=== PATIENT | male | born 1955 | race Hispanic/Latino ===

== ENCOUNTER 2017-01-28 10:37 | Emergency (ER) | payer BC, OTHER ==
[2017-01-28 10:38] VITALS: BMI 45.4
[2017-01-28 10:47] VITALS: RESP 18
[2017-01-28 11:25] VITALS: TEMP 98; O2SAT 98
--- NOTE | 2017-01-28 12:06 | RAD ---
HISTORY: anemia COMPARISON: 11/30/2016 FINDINGS: LUNGS: No active pulmonary disease. PLEURA: No significant pleural effusion identified, no pneumothorax apparent. CARDIOVASCULAR: Normal. OSSEOUS STRUCTURES: No significant abnormalities. VISUALIZED UPPER ABDOMEN: Normal. OTHER FINDINGS: None. IMPRESSION: No active disease.
[2017-01-28 12:11] LABS: ADD MANUAL DIFF? NO
[2017-01-28 12:25] LABS: BASO # 0.02 K/mm3 (0.0-2.0); BASO % 0.6 % (0.0-3.0); EOS # 0.1 (0.0-0.7); EOS % 2.6 % (1.5-5.0); GRAN # 1.82 (1.4-6.5); GRAN % 51.6 % (50.0-68.0); HEMATOCRIT 31.9 % (42.0-52.0); LYMPH # 1.2 (1.2-3.4); LYMPH % 34.7 % (22.0-35.0); MEAN CELL VOLUME 80.4 fL (80.0-105.0); MEAN CORPUSCULAR HEMOGLOBIN 25.7 pg (25.0-35.0); MEAN PLATELET VOLUME 10.4 fl (7.0-11.0); MONO # 0.4 (0.1-0.6); MONO % 10.5 % (1.0-6.0); PLATELET COUNT 129 10^3/uL (120.0-450.0); RED CELL DISTRIBUTION WIDTH 20.7 % (11.5-14.5); WHITE BLOOD COUNT 3.5 10^3/ul (4.5-11.0)
[2017-01-28 12:31] LABS: INR 1.21 (0.93-1.08); PARTIAL THROMBOPLASTIN TIME 29.3 Seconds (23.7-30.8)
[2017-01-28 12:36] LABS: URINE BILIRUBIN SMALL (NEGATIVE); URINE BLOOD LARGE (NEGATIVE); URINE GLUCOSE (UA) 100 mg/dL (NEGATIVE); URINE KETONE NEGATIVE (NEGATIVE); URINE LEUKOCYTE ESTERASE NEGATIVE Leu/uL (NEGATIVE); URINE PROTEIN 30 mg/dL (<30 mg/dL)
[2017-01-28 12:40] LABS: ALB/GLOB RATIO 0.6 (1.1-1.8); ALKALINE PHOSPHATASE 166 U/L (38-133); ALT/SGPT 70 U/L (7-56); AST/SGOT 101 U/L (15-59); BILIRUBIN,TOTAL 1.4 mg/dL (0.2-1.3); BLOOD UREA NITROGEN 16 mg/dL (7-21); CALCIUM 9.2 mg/dL (8.4-10.5); CARBON DIOXIDE 29 mmol/L (21-33); CHLORIDE 100 mmol/L (98-107); GFR AFRICAN-AMERICAN > 60; GLUCOSE,RANDOM 110 mg/dL (70-110); MAGNESIUM 1.8 mg/dL (1.7-2.2); POTASSIUM 3.6 mmol/L (3.6-5.0); SODIUM 139 mmol/L (132-148); TOTAL PROTEIN 9.3 g/dL (5.8-8.3)
[2017-01-28 12:43] LABS: URINE APPEARANCE CLEAR (CLEAR); URINE COLOR YELLOW (YELLOW)
[2017-01-28 12:55] LABS: URINE AMORPHOUS SEDIMENT FEW; URINE BACTERIA MANY (NEG); URINE EPITHELIAL CELLS 0 - 2 /hpf (0-5); URINE RBC 20 - 25 /hpf (0-2); URINE WBC 0 - 2 /hpf (0-6)
[2017-01-28 13:42] LABS: ADD MANUAL DIFF? NO
[2017-01-28 13:54] LABS: BASO # 0.01 K/mm3 (0.0-2.0); BASO % 0.3 % (0.0-3.0); EOS # 0.1 (0.0-0.7); EOS % 2.6 % (1.5-5.0); GRAN # 1.48 (1.4-6.5); HEMATOCRIT 31.2 % (42.0-52.0); LYMPH # 1.1 (1.2-3.4); LYMPH % 35.8 % (22.0-35.0); MEAN CELL VOLUME 80.2 fL (80.0-105.0); MEAN CORPUSCULAR HGB CONC 32.4 g/dl (31.0-37.0); MONO # 0.4 (0.1-0.6); MONO % 12.3 % (1.0-6.0); PLATELET COUNT 102 10^3/uL (120.0-450.0); RED CELL DISTRIBUTION WIDTH 20.1 % (11.5-14.5)
--- NOTE | 2017-01-28 14:21 | ED PDOC ---
Arrival/HPI - General Chief Complaint: Abnormal Labs Time Seen by Provider: 01/28/17 11:33 Historian: Patient - History of Present Illness Narrative History of Present Illness (Text): 01/28/17 14:16 Jax Juarez is a 61 year old male, whose past medical history includes atrial fibrillation, alcohol abuse, GI bleed, and anemia, was advised by PMD Dr. Lima to present to emergency department for worsening anemia. Blood work done at PMD's office 2 weeks ago showed that patient had low hemoglobin level of 8 and was advised to present to emergency department today. Patient is currently complains of weakness, but denies any fever, chills, headache, dizziness, GI bleeding, urinary symptoms or any other complaints at this time. PMD: Dr. Lima. Time/Duration: > week (2 weeks ) Symptom Onset: Gradual Symptom Course: Unchanged Severity Level: Mild Activities at Onset: Rest Context: Home Past Medical History - Provider Review Nursing Documentation Reviewed: Yes - Infectious Disease Hx of Infectious Diseases: None - Tetanus Immunization Tetanus Immunization: Unknown - Cardiac Hx Cardiac Disorders: Yes Hx Atrial Fibrillation: Yes Hx Congestive Heart Failure: Yes Hx Pacemaker: No Hx Peripheral Edema: Yes - Pulmonary Hx Respiratory Disorders: Yes (SMOKED CIGARETTES 1 1/2 PPD QUIT) - Neurological Hx Paralysis: No - HEENT Hx HEENT Disorder: Yes (hx of nosebleeds) - Hematological/Oncological Hx Blood Disorders: Yes Hx Anemia: Yes (blood transfusion) Hx Cancer: Yes (abdominal polyp) - Integumentary Hx Dermatological Disorder: Yes Other/Comment: edema to lower extremeties with redness - Musculoskeletal/Rheumatological Hx Falls: Yes - Gastrointestinal Hx Gastrointestinal Disorders: Yes (cirrhosis) - Psychiatric Hx Psychophysiologic Disorder: Yes Hx Depression: Yes Hx Substance Use: No - Surgical History Hx Orthopedic Surgery: Yes (knee (L)) Other/Comment: hernia. vArIcose vein surgery. carpAl tunnel surgery - Anesthesia Hx Anesthesia: Yes Hx Anesthesia Reactions: No Hx Malignant Hyperthermia: No - Suicidal Assessment Feels Threatened In Home Enviroment: No Family/Social History - Physician Review Nursing Documentation Reviewed: Yes Family/Social History: No Known Family HX Smoking Status: Former Smoker Hx Alcohol Use: Yes Amount per day: 4 Hx Substance Use: No Hx Substance Use Treatment: No Allergies/Home Meds Allergies/Adverse Reactions: Allergies No Known Allergies Allergy (Verified 01/28/17 10:47) Home Medications: Home Meds Medication Instructions Recorded Confirmed Nadolol 20 mg PO DAILY 03/09/14 01/28/17 Esomeprazole Magnesium [Nexium] 40 mg PO DAILY 09/21/16 01/28/17 Furosemide [Lasix] 40 mg PO BID 11/30/16 01/28/17 [id number] CD [Cardizem CD] 180 mg PO DAILY 11/30/16 01/28/17 Potassium CL 10 MEQ/50 ML 20 meq PO DAILY 01/28/17 01/28/17 Review of Systems - Physician Review All systems were reviewed & negative as marked: Yes - Review of Systems Constitutional: Fatigue (generalized weakness ). absent: Fevers Respiratory: Normal. absent: SOB, Cough Cardiovascular: Normal. absent: Chest Pain, Palpitations Neurological: Normal. absent: Headache, Dizziness Psychiatric: Normal Physical Exam Vital Signs Reviewed: Yes Vital Signs Temp Pulse Resp BP Pulse Ox 01/28/17 14:28 69 18 129/74 98 01/28/17 12:09 64 18 124/79 98 01/28/17 11:19 98.0 F 66 18 126/82 98 01/28/17 10:42 98 F 66 18 126/82 97 Temperature: Afebrile Blood Pressure: Normal Pulse: Regular Respiratory Rate: Normal Appearance: Positive for: Well-Appearing, Non-Toxic, Comfortable Pain Distress: None Mental Status: Positive for: Alert and Oriented X 3 - Systems Exam Head: Present: Atraumatic, Normocephalic Pupils: Present: PERRL Conjunctiva: Present: Normal Respiratory/Chest: Present: Clear to Auscultation, Good Air Exchange. No: Respiratory Distress, Accessory Muscle Use Cardiovascular: Present: Regular Rate and Rhythm, Normal S1, S2. No: Murmurs Abdomen: Present: Normal Bowel Sounds. No: Tenderness, Distention, Peritoneal Signs Neurological: Present: GCS=15, CN II-XII Intact, Speech Normal Skin: Present: Warm, Dry, Normal Color. No: Rashes Psychiatric: Present: Alert, Oriented x 3, Normal Insight, Normal Concentration Medical Decision Making ED Course and Treatment: 01/28/17 14:24 Impression: A 61 year old male who presents to the emergency department for low hemoglobin count of 8. Differential Diagnosis include but are not limited to: weakness secondary to anemia. Plan: -- EKG -- Labs -- Chest X-ray -- Urinalysis -- Reassess and disposition Progress Notes: 01/28/17 14:26 Initial hemoglobin level at Emergency department was 10.2 and repeat was 10.1 . Case discussed with Dr. Lima who recommends that blood transfusion not necessary at this time. Advised patient to f/u with him outpatient. - Lab Interpretations Lab Results: 01/28/17 13:40 01/28/17 12:27 Lab Results 01/28/17 13:40: WBC 3.0 L, RBC 3.89, Hgb 10.1 L, Hct 31.2 L, MCV 80.2, MCH 26.0 , MCHC 32.4, RDW 20.1 H, Plt Count 102 L, MPV 10.0, Gran % 49.0 L, Lymph % (Auto ) 35.8 H, Nicholas % (Auto) 12.3 H, Eos % (Auto) 2.6, Baso % (Auto) 0.3, Gran # 1.48 , Lymph # 1.1 L, Nicholas # 0.4, Eos # 0.1, Baso # 0.01 01/28/17 12:27: Sodium 139, Potassium 3.6, Chloride 100, Carbon Dioxide 29, Anion Gap 14, BUN 16, Creatinine 0.9, Est GFR ( Amer) > 60, Est GFR (Non- Af Amer) > 60, Random Glucose 110, Calcium 9.2, Magnesium 1.8, Total Bilirubin 1.4 H, AST 101 H, ALT 70 H, Alkaline Phosphatase 166 H, Total Protein 9.3 H, Albumin 3.6, Globulin 5.7, Albumin/Globulin Ratio 0.6 L, Blood Type O POSITIVE, Antibody Screen Negative, BBK History Checked Patient has bt 01/28/17 12:20: Urine Color Yellow, Urine Appearance Clear, Urine pH 6.0, Ur Specific [place] 1.020, Urine Protein 30 H, Urine Glucose (UA) 100 H, Urine Ketones Negative, Urine Blood Large H, Urine Nitrate Negative, Urine Bilirubin Small H, Urine Urobilinogen 4.0 H, Ur Leukocyte Esterase Negative, Urine RBC 20 - 25, Urine WBC 0 - 2, Ur Epithelial Cells 0 - 2, Amorphous Sediment Few, Urine Bacteria Many, Hyaline Casts 0 - 2 01/28/17 11:17: WBC 3.5 L, RBC 3.97, Hgb 10.2 L, Hct 31.9 L, MCV 80.4, MCH 25.7 , MCHC 32.0, RDW 20.7 H, Plt Count 129, MPV 10.4, Gran % 51.6, Lymph % (Auto) 34.7, Nicholas % (Auto) 10.5 H, Eos % (Auto) 2.6, Baso % (Auto) 0.6, Gran # 1.82, Lymph # 1.2, Nicholas # 0.4, Eos # 0.1, Baso # 0.02, PT 13.1 H, INR 1.21 H, APTT 29.3 I have reviewed the lab results: Yes - RAD Interpretation Radiology Orders: 01/28/17 11:46 CHEST PORTABLE [RAD] Stat Barrel Assembly Inspector: Radiologist - EKG Interpretation Interpreted by ED Physician: Yes Type: 12 lead EKG - Scribe Statement The provider has reviewed the documentation as recorded by the Enrique Mccallum Provider Attestation: All medical record entries made by the Enrique were at my direction and personally dictated by me. I have reviewed the chart and agree that the record accurately reflects my personal performance of the history, physical exam, medical decision making, and the department course for this patient. I have also personally directed, reviewed, and agree with the discharge instructions and disposition. Disposition/Present on Arrival - Present on Arrival Any Indicators Present on Arrival: No History of DVT/PE: No History of Uncontrolled Diabetes: No Urinary Catheter: No History of Decub. Ulcer: No History Surgical Site Infection Following: None - Disposition Have Diagnosis and Disposition been Completed?: Yes Diagnosis: Weakness Disposition: HOME/ ROUTINE Disposition Time: 14:25 Patient Plan: Admission Condition: IMPROVED Discharge Instructions (ExitCare): Weakness (ED) Additional Instructions: Mr Sauceda, thank you for letting us take care of you today. Your provider was Dr. Mccabe. You were treated for Weakness. The emergency medical care you received today was directed at your acute symptoms. If you were prescribed any medication, please fill it and take as directed. It may take several days for your symptoms to resolve. Return to the Emergency Department if your symptoms worsen, do not improve, or if you have any other problems. Please contact your doctor or call one of the physicians/clinics you have been referred to that are listed on the Patient Visit Information form that is included in your discharge packet. Bring any paperwork you were given at discharge with you along with any medications you are taking to your follow up visit. Our treatment cannot replace ongoing medical care by a primary care provider (PCP) outside of the emergency department. Thank you for allowing the [facility] team to be part of your care today. If you had an X-Ray or CT scan: A Radiologist will review the ED reading if any change in treatment is needed we will contact you. If you had a blood, urine, or wound culture: It will take several days for the results, if any change in treatment is needed we will contact you. If you had an STI test: It will take 48 hours for the results. Please call after 1 week if you have not heard back. Referrals: Azeem Lima MD [Primary Care Provider] - Follow up with primary Forms: WORK NOTE
[2017-01-28 14:29] VITALS: BP 129/74; PULSE 69
--- NOTE | 2017-01-29 18:08 | CARD ---
APPROVED REPORT EKG Measurement Heart [id number] <Conclusion> Sinus bradycardia Nonspecific ST abnormality Prolonged QT Abnormal ECG
== END 2017-01-28 14:30 | disposition home or self-care (01) ==
LOC: ED 10:37
DX: R53.1 Weakness (principal); Z87.891 Personal history of nicotine dependence; I48.91 Unspecified atrial fibrillation

== ENCOUNTER 2017-05-08 08:47 | Day surgery (SDC) | payer BC, OTHER ==
[2017-04-29 13:38] VITALS: BMI 40.4
[2017-05-08 09:24] LABS: BASO # 0.02 K/mm3 (0.0-2.0); BASO % 0.6 % (0.0-3.0); EOS # 0.1 (0.0-0.7); GRAN # 1.81 (1.4-6.5); GRAN % 50.8 % (50.0-68.0); HEMOGLOBIN 10.7 gm/dL (14.0-18.0); LYMPH # 1.1 (1.2-3.4); LYMPH % 30.6 % (22.0-35.0); MEAN CELL VOLUME 80.7 fL (80.0-105.0); MEAN CORPUSCULAR HEMOGLOBIN 26.1 pg (25.0-35.0); MEAN CORPUSCULAR HGB CONC 32.3 g/dl (31.0-37.0); MEAN PLATELET VOLUME 9.7 fl (7.0-11.0); MONO # 0.6 (0.1-0.6); PLATELET COUNT 97 10^3/uL (120.0-450.0); RED CELL DISTRIBUTION WIDTH 18.4 % (11.5-14.5); WHITE BLOOD COUNT 3.6 10^3/ul (4.5-11.0)
[2017-05-08 09:35] LABS: INR 1.18 (0.93-1.08); PARTIAL THROMBOPLASTIN TIME 29.1 Seconds (23.7-30.8); PROTHROMBIN TIME 12.7 Seconds (9.9-11.8)
[2017-05-08] MEDS ORDERED: Propofol 10 mg/ml Inj (20 ML) ONE (09:52)
[2017-05-08] MEDS ORDERED: cefTRIAXone (Rocephin) 1 gm Inj ONE (10:00)
[2017-05-08] MEDS ORDERED: Sodium Chloride 0.9% 1,000 ML IV SCH (11:00)
[2017-05-08 11:35] VITALS: BP 111/42; PULSE 54; RESP 17; TEMP 97.9; O2SAT 96
== END 2017-05-08 12:30 | disposition home or self-care (01) ==
LOC: ENDO 08:47
PROVIDERS: ATTEND Internal Medicine Gastroenterology
DX: K25.4 Chronic or unspecified gastric ulcer with hemorrhage (principal); I85.00 Esophageal varices without bleeding
CPT/HCPCS: 36415; 43255; 85025; 85610; 85730; J0696; J2704; J3010; J7040 ×2

== ENCOUNTER 2017-11-27 16:20 | Emergency (ER) | payer BC ==
[2017-11-27 16:21] VITALS: BMI 40.4
[2017-11-27] MEDS ORDERED: Sodium Chloride 0.9% 1,000 ML IV STA (16:57)
--- NOTE | 2017-11-27 16:57 | ED PDOC ---
Arrival/HPI - General Chief Complaint: Back Pain Time Seen by Provider: 11/27/17 16:49 Historian: Patient - History of Present Illness Narrative History of Present Illness (Text): 11/27/17 16:50 62 y/o male, pmh including a.fibb (10 years ago and on the aspirin only)/anemia/ liver cirrhosis?, nkda, c/o rt. flank pain suddenly onset about 1 week ago with no fall or trauma. Pt. stated that he has sudden onset of the rt. flank/lower back pain, called his own pmd and advised to come to the ER, no penile discharge or skin rash, no testicular pain, no palpitation or night sweat, no urinary symptoms, no numbness or tingling, no other medical or psychological complaints. Past Medical History - Provider Review Nursing Documentation Reviewed: Yes - Infectious Disease Hx of Infectious Diseases: None - Tetanus Immunization Tetanus Immunization: Unknown - Cardiac Hx Cardiac Disorders: Yes Hx Atrial Fibrillation: Yes Hx Pacemaker: No - Pulmonary Hx Respiratory Disorders: Yes (SMOKED CIGARETTES 1 1/2 PPD QUIT) - Neurological Hx Neurological Disorder: No Hx Paralysis: No - HEENT Hx HEENT Disorder: Yes (hx of nosebleeds) - Renal Hx Renal Disorder: No - Endocrine/Metabolic Hx Endocrine Disorders: No - Hematological/Oncological Hx Blood Disorders: Yes Hx Blood Transfusions: Yes Hx Blood Transfusion Reaction: No - Integumentary Hx Dermatological Disorder: Yes Other/Comment: edema to lower extremeties with redness - Musculoskeletal/Rheumatological Hx Musculoskeletal Disorders: No - Gastrointestinal Hx Gastrointestinal Disorders: No (cirrhosis) - Genitourinary/Gynecological Hx Genitourinary Disorders: No - Psychiatric Hx Psychophysiologic Disorder: No Hx Emotional Abuse: No Hx Physical Abuse: No Hx Substance Use: No - Surgical History Hx Orthopedic Surgery: Yes (knee (L)) Other/Comment: hernia. vArIcose vein surgery. carpAl tunnel surgery - Anesthesia Hx Anesthesia Reactions: No Hx Malignant Hyperthermia: No - Suicidal Assessment Feels Threatened In Home Enviroment: No Family/Social History - Physician Review Nursing Documentation Reviewed: Yes Family/Social History: Unknown Family HX Smoking Status: Former Smoker Hx Alcohol Use: Yes (BEER 4-5 BEERS, NOT EVERY DAY) Amount per day: 4 Hx Substance Use: No Hx Substance Use Treatment: No Allergies/Home Meds Allergies/Adverse Reactions: Allergies No Known Allergies Allergy (Verified 11/27/17 16:33) Home Medications: Home Meds Medication Instructions Recorded Confirmed Nadolol 20 mg PO DAILY 03/09/14 11/27/17 Esomeprazole Magnesium [Nexium] 40 mg PO DAILY 09/21/16 11/27/17 Furosemide [Lasix] 40 mg PO DAILY 11/30/16 11/27/17 [id number] CD [Cardizem CD] 180 mg PO DAILY 11/30/16 11/27/17 Potassium Chloride [K-Dur 20] 20 meq PO DAILY 04/29/17 11/27/17 Cyclobenzaprine HCl 5 mg PO TID PRN 11/27/17 11/27/17 Tramadol HCl [Ultram] 50 mg PO BID PRN 11/27/17 11/27/17 Review of Systems - Review of Systems Constitutional: absent: Fatigue, Fevers Eyes: absent: Vision Changes ENT: absent: Hearing Changes Respiratory: absent: SOB, Cough Cardiovascular: absent: Chest Pain Gastrointestinal: Other (+flank pain). absent: Abdominal Pain, Diarrhea, Nausea , Vomiting Musculoskeletal: absent: Arthralgias, Back Pain, Myalgias Skin: absent: Rash, Pruritis Neurological: absent: Headache, Dizziness Psychiatric: absent: Anxiety, Depression Physical Exam Vital Signs Reviewed: Yes Vital Signs Temp Pulse Resp BP Pulse Ox 11/27/17 17:08 54 L 18 128/74 96 11/27/17 16:38 97.4 F L 58 L 18 130/83 94 L Temperature: Afebrile Blood Pressure: Normal Pulse: Regular Respiratory Rate: Normal Appearance: Positive for: Well-Appearing, Non-Toxic Pain Distress: Moderate Mental Status: Positive for: Alert and Oriented X 3 - Systems Exam Head: Present: Atraumatic, Normocephalic Pupils: Present: PERRL Extroacular Muscles: Present: EOMI Conjunctiva: Present: Normal Mouth: Present: Moist Mucous Membranes Neck: Present: Normal Range of Motion Respiratory/Chest: Present: Clear to Auscultation, Good Air Exchange. No: Respiratory Distress, Accessory Muscle Use Cardiovascular: Present: Regular Rate and Rhythm, Normal S1, S2. No: Murmurs Abdomen: Present: Normal Bowel Sounds. No: Tenderness, Distention, Peritoneal Signs, Rebound, Guarding Back: Present: Normal Inspection, CVA Tenderness (mild Rt. cva tenderness but pain is more on the r.t paraspinal of the lumbar region noted with no skin rash and no vesicular lesion. ) Upper Extremity: Present: Normal Inspection. No: Cyanosis, Edema Lower Extremity: Present: Normal Inspection. No: Edema Neurological: Present: GCS=15, Speech Normal, Motor Func Grossly Intact, Gait Normal, Memory Normal Skin: Present: Warm, Dry, Normal Color. No: Rashes Psychiatric: Present: Alert, Oriented x 3, Normal Insight, Normal Concentration Medical Decision Making ED Course and Treatment: 11/27/17 17:02 -labs/ua -CT abdomen and pelvis -CXR -EKG -IVF/toradol -Observe and reassess 11/27/17 21:30 -EKG: Sinus Bradycardia @ 54 BPM, no ST elevation or depression, mild J point on lead V2, no acute T wave changes. -Chest xray show no acute findings -CT abdomen and pelvis show Hepatosplenomegaly/cirrhotic liver. Cholelithiasis without CT evidence of acute cholecystitis. No acute/ significant findings with respect to the kidneys, ureters and urinary bladder. -Labs show no acute findings except wbc 2.6 (chronic leukopenic), Hgb 104.4 from 10.7 with chronic anemia, K+ 3.3 (potassium chloiride 20meq po ordered), AST 67 from 101. Troponin is negative. -INR 1.27 and PTT 34.2 -UA show +hematuria microscopic which is chronic from 2017, never follow up with the urologist and will send him to see one. -Pt. feels much better with the toradol and valium in the ER, pain relief. Pt. is not a suitable candidate for chronic NSAIDS. I checked [facility] and no visible prescription for controlled substance for the past 1 year. -Discharge home with oxycodone (percocet without tylenol), stay hydrated, high fiber diet including fruits and vegetables, lidoderm, follow up with your own pmd and urologist within 2 days, return to the ER for any new or worsening signs or symptoms. - Lab Interpretations Lab Results: 11/27/17 17:35 11/27/17 17:35 Lab Results 11/27/17 20:50: Urine Color Yellow, Urine Appearance Clear, Urine pH 6.0, Ur Specific [place] 1.010, Urine Protein Negative, Urine Glucose (UA) Negative, Urine Ketones Negative, Urine Blood Moderate H, Urine Nitrate Negative, Urine Bilirubin Negative, Urine Urobilinogen 1.0 H, Ur Leukocyte Esterase Negative, Urine RBC 10 - 15, Urine WBC 0 - 2, Ur Epithelial Cells None, Amorphous Sediment Few, Urine Bacteria Many, Hyaline Casts 0 - 2, Fine Granular Casts 0 - 2 11/27/17 17:35: PT 14.6 H, INR 1.27 H, APTT 34.2 11/27/17 17:35: WBC 2.6 L* D, RBC 4.09, Hgb 10.4 L, Hct 33.2 L, MCV 81.2, MCH 25.4, MCHC 31.3, RDW 18.9 H, Plt Count 95 L, MPV 10.6, Gran % 59.3, Lymph % ( Auto) 24.4, [place] % (Auto) 12.4 H, Eos % (Auto) 3.5, Baso % (Auto) 0.4, Gran # 1.53, Lymph # (Auto) 0.6 L, [place] # (Auto) 0.3, Eos # (Auto) 0.1, Baso # (Auto) 0.01 11/27/17 17:35: Sodium 139, Potassium 3.3 L, Chloride 102, Carbon Dioxide 27, Anion Gap 13, BUN 16, Creatinine 0.8, Est GFR ( Amer) > 60, Est GFR (Non- Af Amer) > 60, Random Glucose 105, Calcium 9.4, Magnesium 1.8, Total Bilirubin 1.1, AST 67 H, ALT 52, Alkaline Phosphatase 129 H, Lactate Dehydrogenase 387, Total Creatine Kinase 63, Troponin I < 0.01 D, Total Protein 8.9 H, Albumin 3.7 , Globulin 5.1, Albumin/Globulin Ratio 0.7 L - RAD Interpretation Radiology Orders: 11/27/17 16:57 ABD & PELVIS IV CONTRAST ONLY [CT] Stat CHEST PORTABLE [RAD] Stat CT Abdomen/pelvis: PROCEDURE: CT Abdomen and Pelvis with contrast HISTORY: Right flank pain. COMPARISON: 02/06/2017 abdominal ultrasound 11/30/2016 CT chest includes upper abdomen. TECHNIQUE: Contrast dose: 100 cc Omnipaque 350 Radiation dose: Total exam DLP = 1285.37 mGy-cm. This CT exam was performed using one or more of the following dose reduction techniques: Automated exposure control, adjustment of the mA and/or kV according to patient size, and/or use of iterative reconstruction technique. FINDINGS: LOWER THORAX: Unremarkable. LIVER: Cirrhotic liver similar to that seen previously. Hepatomegaly without identifiable hepatic mass. GALLBLADDER AND BILE DUCTS: Cholelithiasis without CT evidence of acute cholecystitis. PANCREAS: Unremarkable. No gross lesion or ductal dilatation. SPLEEN: Splenomegaly. Orthogonal measurements 6.8 x 17.8 x 6.7 cm. 3.7 cm accessory splenule. ADRENALS: Unremarkable. No mass. KIDNEYS AND URETERS: Unremarkable. No hydronephrosis. No solid mass. Incidental finding(s): Multiple simple cysts the number and size greater to the left kidney compared to the right. No focal renal abnormalities. Unremarkable appearing renal arteries and veins. VASCULATURE: Unremarkable. No aortic aneurysm. BOWEL: Unremarkable. No obstruction. No gross mural thickening. APPENDIX: Normal appendix. PERITONEUM: Unremarkable. No free fluid. No free air. LYMPH NODES: Innumerable bilateral inguinal lymph nodes the preponderance of which are 1 cm or less. BLADDER: Unremarkable. REPRODUCTIVE: Unremarkable. BONES: No acute fracture. OTHER FINDINGS: None. IMPRESSION: 1. Hepatosplenomegaly/cirrhotic liver. 2. Cholelithiasis without CT evidence of acute cholecystitis. 3. No acute/ significant findings with respect to the kidneys, ureters and urinary bladder. Additional benign and/or incidental findings described above. --------- Chest xray: FINDINGS: Limitations: Radiographic technique - mild. Lungs: Mild underinflation. No definite consolidation. Pleural space: No definite pleural effusion. No pneumothorax. Heart: Mild cardiomegaly. Mediastinum: Unremarkable. Bones/joints: No acute fracture. Degenerative changes of shoulders and spine. IMPRESSION: 1. Mild cardiomegaly. 2. Incidental/non-acute findings are described above. Thank you for allowing us to participate in the care of your patient. Dictated and Authenticated by: Jeremy Carlson MD 11/27/2017 8:23 PM Eastern Time ([place] & [place]) Chest Pain Coordinator: Radiologist - EKG Interpretation EKG Interpretation (Text): 11/27/17 17:08 Sinus Bradycardia @ 54 BPM, no ST elevation or depression, mild J point on lead V2, no acute T wave changes. Interpreted by ED Physician: Yes Comparison: Com.w/previous EKG - Medication Orders Current Medication Orders: Discontinued Medications Diazepam (Valium) 5 mg PO ONCE ONE PRN Reason: Protocol Stop: 11/27/17 20:45 Last Admin: 11/27/17 21:02 Dose: 5 mg Sodium Chloride (Sodium Chloride 0.9%) 1,000 mls @ 999 mls/hr IV .Q1H1M STA Stop: 11/27/17 17:57 Last Admin: 11/27/17 17:26 Dose: 999 mls/hr eMAR Start Stop Document 11/27/17 17:26 OCS (Rec: 11/27/17 17:26 OCS [id number]) Intravenous Solution Start Date 11/27/17 Start Time 17:26 End Date 11/27/17 End time 18:27 Total Infusion Time 61 Ketorolac Tromethamine (Toradol) 30 mg IVP STAT STA Stop: 11/27/17 16:58 Last Admin: 11/27/17 17:26 Dose: 30 mg MAR Pain Assessment Document 11/27/17 17:26 OCS (Rec: 11/27/17 17:27 OCS [id number]) Pain Reassessment Is this a pain reassessment? Yes Sleep Is patient sleeping during reassessment? No Presence of Pain Presence of Pain Yes Pain Scale Used Pain Scale Used Numeric Location Left, Right or Bilateral Right Pain Location Body Site Back Description Description Constant Intensity of Pain at present 8 Aggravating Factors ADL's IVP Administration Document 11/27/17 17:26 OCS (Rec: 11/27/17 17:27 OCS [id number]) Charges for Administration # of IVP Administrations 1 Re-Assess: SUKH Pain Assessment Document 11/27/17 18:26 OCS (Rec: 11/27/17 18:38 OCS [id number]) Pain Reassessment Is this a pain reassessment? Yes Sleep Is patient sleeping during reassessment? No Presence of Pain Presence of Pain Yes Pain Scale Used Pain Scale Used Numeric Location Left, Right or Bilateral Right Pain Location Body Site Back Description Description Constant Intensity of Pain at present 4 Potassium Chloride (K-Dur 20 Meq Er Tab) 20 meq PO STAT STA Stop: 11/27/17 18:14 Last Admin: 11/27/17 18:22 Dose: 20 meq - PA / BURGLAR ALARM SUPERINTENDENT / Resident Statement / has reviewed & agrees with the documentation as recorded. Disposition/Present on Arrival - Present on Arrival Any Indicators Present on Arrival: No History of DVT/PE: No History of Uncontrolled Diabetes: No Urinary Catheter: No History of Decub. Ulcer: No History Surgical Site Infection Following: None - Disposition Have Diagnosis and Disposition been Completed?: Yes Diagnosis: Low back pain, Hematuria Disposition: HOME/ ROUTINE Disposition Time: 17:41 Patient Plan: Discharge Condition: IMPROVED Discharge Instructions (ExitCare): Acute Hematuria (ED) Print Language: LITHUANIAN Additional Instructions: -Discharge home with oxycodone (percocet without tylenol), stay hydrated, high fiber diet including fruits and vegetables, lidoderm, follow up with your own pmd and urologist within 2 days, return to the ER for any new or worsening signs or symptoms. Prescriptions: Lidocaine 5% [Lidoderm] 1 patch TOP DAILY #14 patch oxyCODONE [oxyCODONE Immediate Release Tab] 5 mg PO QID PRN #12 tab PRN Reason: Other Referrals: Azeem Lima MD [Primary Care Provider] - Follow up with primary Randall Cornejo MD [Staff Provider] - Follow up with primary Forms: [employer] ([place]ian), WORK NOTE
[2017-11-27 17:02] VITALS: TEMP 97.4
[2017-11-27 18:06] LABS: BASO # 0.01 K/mm3 (0.0-2.0); BASO % 0.4 % (0.0-3.0); EOS # 0.1 (0.0-0.7); EOS % 3.5 % (1.5-5.0); GRAN # 1.53 (1.4-6.5); GRAN % 59.3 % (50.0-68.0); HEMOGLOBIN 10.4 g/dL (14.0-18.0); LYMPH # 0.6 (1.2-3.4); LYMPH % 24.4 % (22.0-35.0); MEAN CELL VOLUME 81.2 fl (80.0-105.0); MEAN CORPUSCULAR HEMOGLOBIN 25.4 pg (25.0-35.0); MEAN CORPUSCULAR HGB CONC 31.3 g/dl (31.0-37.0); MEAN PLATELET VOLUME 10.6 fl (7.0-11.0); MONO # 0.3 (0.1-0.6); MONO % 12.4 % (1.0-6.0); RBC 4.09 10^6/uL (3.5-6.1); RED CELL DISTRIBUTION WIDTH 18.9 % (11.5-14.5)
[2017-11-27 18:11] LABS: ALB/GLOB RATIO 0.7 (1.1-1.8); ALBUMIN 3.7 g/dL (3.0-4.8); ALT/SGPT 52 U/L (7-56); AST/SGOT 67 U/L (17-59); BLOOD UREA NITROGEN 16 mg/dL (7-21); CALCIUM 9.4 mg/dL (8.4-10.5); GFR AFRICAN-AMERICAN > 60; GFR NON-AFRICAN AMERICAN > 60; MAGNESIUM 1.8 mg/dL (1.7-2.2)
[2017-11-27] MEDS ORDERED: Potassium Chloride 20 mEq ER Tab PO STA (18:13)
[2017-11-27 18:14] LABS: WHITE BLOOD COUNT 2.6 10^3/ul (4.5-11.0)
[2017-11-27 18:22] LABS: TROPONIN I < 0.01 ng/mL
[2017-11-27] MEDS ORDERED: Iohexol 350 MG/100 ML VIAL ONE (18:33)
--- NOTE | 2017-11-27 19:07 | CT ---
PROCEDURE: CT Abdomen and Pelvis with contrast HISTORY: Right flank pain. COMPARISON: 02/06/2017 abdominal ultrasound 11/30/2016 CT chest includes upper abdomen. TECHNIQUE: Contrast dose: 100 cc Omnipaque 350 Radiation dose: Total exam DLP = 1285.37 mGy-cm. This CT exam was performed using one or more of the following dose reduction techniques: Automated exposure control, adjustment of the mA and/or kV according to patient size, and/or use of iterative reconstruction technique. FINDINGS: LOWER THORAX: Unremarkable. LIVER: Cirrhotic liver similar to that seen previously. Hepatomegaly without identifiable hepatic mass. GALLBLADDER AND BILE DUCTS: Cholelithiasis without CT evidence of acute cholecystitis. PANCREAS: Unremarkable. No gross lesion or ductal dilatation. SPLEEN: Splenomegaly. Orthogonal measurements 6.8 x 17.8 x 6.7 cm. 3.7 cm accessory splenule. ADRENALS: Unremarkable. No mass. KIDNEYS AND URETERS: Unremarkable. No hydronephrosis. No solid mass. Incidental finding(s): Multiple simple cysts the number and size greater to the left kidney compared to the right. No focal renal abnormalities. Unremarkable appearing renal arteries and veins. VASCULATURE: Unremarkable. No aortic aneurysm. BOWEL: Unremarkable. No obstruction. No gross mural thickening. APPENDIX: Normal appendix. PERITONEUM: Unremarkable. No free fluid. No free air. LYMPH NODES: Innumerable bilateral inguinal lymph nodes the preponderance of which are 1 cm or less. BLADDER: Unremarkable. REPRODUCTIVE: Unremarkable. BONES: No acute fracture. OTHER FINDINGS: None. IMPRESSION: 1. Hepatosplenomegaly/cirrhotic liver. 2. Cholelithiasis without CT evidence of acute cholecystitis. 3. No acute/ significant findings with respect to the kidneys, ureters and urinary bladder. Additional benign and/or incidental findings described above.
[2017-11-27 19:08] LABS: INR 1.27 (0.93-1.08); PARTIAL THROMBOPLASTIN TIME 34.2 Seconds (25.1-36.5); PROTHROMBIN TIME 14.6 SECONDS (9.4-12.5)
--- NOTE | 2017-11-27 20:24 | RAD ---
EXAM: XR Chest, 1 View CLINICAL HISTORY: 62 years old, male; Pain; Other: Right flank pain; Additional info: Rt. Flank pain TECHNIQUE: Frontal view of the chest. COMPARISON: DX - CHEST TWO VIEWS (PA/LAT) 2017-11-17 07:22 FINDINGS: Limitations: Radiographic technique - mild. Lungs: Mild underinflation. No definite consolidation. Pleural space: No definite pleural effusion. No pneumothorax. Heart: Mild cardiomegaly. Mediastinum: Unremarkable. Bones/joints: No acute fracture. Degenerative changes of shoulders and spine. IMPRESSION: 1. Mild cardiomegaly. 2. Incidental/non-acute findings are described above.
[2017-11-27 20:55] LABS: URINE BILIRUBIN NEGATIVE (NEGATIVE); URINE BLOOD MODERATE (NEGATIVE); URINE GLUCOSE (UA) NEGATIVE (NEGATIVE); URINE LEUKOCYTE ESTERASE NEGATIVE Leu/uL (NEGATIVE); URINE NITRATE NEGATIVE (NEGATIVE); URINE PROTEIN NEGATIVE mg/dL (<30 mg/dL)
[2017-11-27 20:56] LABS: URINE APPEARANCE CLEAR (CLEAR); URINE COLOR YELLOW (YELLOW)
[2017-11-27 21:08] LABS: URINE WBC 0 - 2 /hpf (0-6)
[2017-11-27 21:09] LABS: URINE AMORPHOUS SEDIMENT FEW; URINE BACTERIA MANY (NEG); URINE FINE GRANULAR CAST 0 - 2 /hpf (0-2); URINE HYALINE CAST 0 - 2 /hpf
[2017-11-27 22:03] VITALS: BP 131/86; PULSE 60; RESP 15; O2SAT 99
--- NOTE | 2017-11-28 14:43 | CARD ---
APPROVED REPORT EKG Measurement Heart [id number] <Conclusion> Sinus bradycardia with premature atrial complexes with aberrant conduction Nonspecific ST and T wave abnormality Prolonged QT Abnormal ECG
== END 2017-11-27 22:03 | disposition home or self-care (01) ==
LOC: ED 16:20
DX: R31.9 Hematuria, unspecified (principal); M54.5 Low back pain; I48.91 Unspecified atrial fibrillation; Z87.891 Personal history of nicotine dependence
CPT/HCPCS: 71045; 74177; 80053; 81001; 82550; 83615; 83735; 84484; 85025; 85610; 85730; 93005; 96361; 96374; 99283; J1885; J7040; Q9967

== ENCOUNTER 2018-12-15 11:11 | Outpatient (CLI) | payer BC | END 2018-12-15 11:12 | disposition home or self-care (01) | LOC: RAD 11:11 ==

== ENCOUNTER 2019-01-03 07:15 | Outpatient (CLI) | payer BC | END 2019-01-03 07:16 | disposition home or self-care (01) | LOC: LAB 07:15 ==

== ENCOUNTER 2019-01-06 07:24 | Outpatient (CLI) | payer BC, OTHER | END 2019-01-06 07:25 | disposition home or self-care (01) | LOC: RAD 07:24 ==

== ENCOUNTER 2019-01-17 15:43 | Outpatient (CLI) | payer BC, OTHER | END 2019-01-17 15:44 | disposition home or self-care (01) | LOC: RAD 15:43 ==

== ENCOUNTER 2019-01-20 06:42 | Outpatient (CLI) | payer BC, OTHER | END 2019-01-20 06:43 | disposition home or self-care (01) | LOC: CARDIO 06:42 | DX: Z01.818 Encounter for other preprocedural examination (principal); R06.02 Shortness of breath; I10 Essential (primary) hypertension ==